=== PATIENT | female | born 1995 | race Two or more races ===

== ENCOUNTER 2024-04-04 16:40 | Emergency (ER) | payer MEDICAID, OTHER ==
[~2024-04-04] VITALS: Ht 165.1 cm; Wt 68.7 kg
[2024-04-04 18:22] VITALS: BP 145/82; PULSE 89; RESP 18; TEMP 98; O2SAT 97
[2024-04-04] MEDS ORDERED: ACET500T58 PO (20:30)
[2024-04-04] MEDS ORDERED: PRED20TA2 PO (20:30)
[2024-04-04] MEDS ORDERED: CLIN1CAP70 PO (20:30)
[2024-04-04] MEDS: ACETAMINOPHEN 325 MG TAB PO ONE (20:49)
[2024-04-04] MEDS: cefTRIAXone SOD 1,000 MG VL IM ONE (20:50)
== END 2024-04-04 21:19 | disposition home or self-care (01) ==
LOC: ER 16:40
DX: L03.115 Cellulitis of right lower limb (principal); F17.210 Nicotine dependence, cigarettes, uncomplicated; F15.90 Other stimulant use, unspecified, uncomplicated; Z79.899 Other long term (current) drug therapy
CPT/HCPCS: 96372; 99283; J0696